=== PATIENT | female | born 1990 | race Caucasian/White ===

== ENCOUNTER 2020-05-31 20:13 | Emergency (ER) | payer BC, SELFPAY ==
--- NOTE | 2020-05-31 20:33 | HMH.EDUTC ---
[facility] Disposition Clinical Impression: Bronchitis, At increased risk of exposure to COVID-19 virus Disposition: Home, Self-Care Condition on Discharge: Good Instructions: Preventing the Spread of Coronavirus Discharge Instructions Additional Instructions: Drink plenty of fluids. Take tylenol for pain or fever. Return if you begin to have difficulty breathing. Follow up with your regular doctor. GO TO THE ER FOR ANY WORSENING SYMPTOMS Referrals: Hayde Horn APRN [Primary Care Provider] - Time of Disposition: 20:37 Medical Decision Making - Medical Records Medical records reviewed: No: I reviewed the patient's medical records. - [place] Inquiry Pt receiving controlled substance: No Vital Signs: 05/31/20 20:48 Temperature 98.1 F Temperature Source Oral Pulse Rate 92 H Respiratory Rate 16 Blood Pressure 124/83 Oxygen Delivery Method Room Air [facility] HPI - General Stated complaint: covid test Time Seen by Provider: 05/31/20 20:33 - History of Present Illness Provider Complaint: She states that she has had a cough for the past 2 days. She attributed to allergies. 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 So, to be safe she wants to get tested for covid-19. She has been vaccinated for covid-19 already. - Related Data Previous Rx's Medication Instructions Recorded fluticasone propionate 50 1 spray INTRANASAL DAILY #9.9 g 08/18/18 mcg/actuation nasal spray,suspension azithromycin 250 mg tablet See Rx Instructions PO .COMPLEX #6 08/20/18 tab dextromethorphan-guaifenesin 30 1 tab PO Q12H 14 Days #28 tab 08/20/18 mg-600 mg tablet extended [id number] hr Allergies Allergy/AdvReac Type Severity Reaction Status Date / Time No Known Allergies Allergy Verified 08/18/18 17:48 [facility] History - Hepatitis A Screen Attestation statement:: This patient has been screened for Hepatitis A risk factors. I have reviewed the patient's past medical history: Yes Other Surgeries: Yes: No Previous Surgery Amputation: No Fractures: No - Social History Smoking Status: Never smoker Alcohol Intake: never Alcohol Intake Frequency:: 0-2 drinks per day Substance Use Type: denies use Occupational Status: employed Housing: apartment Household Members: none Family Hx:: No significant family history ROS Obtained: Yes All systems reviewed & no additional complaints - Constitutional Constitutional: Reports system reviewed and no additional complaints, except as docu - Eyes Eyes: Reports system reviewed and no additional complaints, except as docu - ENT Ears, Nose, Mouth, and Throat: Reports system reviewed and no additional complaints, except as docu - Cardiovascular Cardiovascular: Reports system reviewed and no additional complaints, except as docu - Respiratory Respiratory: Reports system reviewed and no additional complaints, except as docu - Gastrointestinal Gastrointestingal: Reports: system reviewed and no additional complaints, except as docu Physical Exam - General General appearance: alert, in no apparent distress - Head Head exam: atraumatic, normocephalic, normal inspection - Eye Eye exam: Present: normal appearance, PERRL, EOMI - ENT ENT exam: Present: normal exam, normal oropharynx, mucous membranes moist, TM's normal bilaterally, normal external ear exam - Neck Neck exam: Present: normal inspection, full ROM, trachea midline. Absent: meningismus, lymphadenopathy - Chest Chest inspection: Present: normal inspection, symmetric chest wall rise. Absent: tenderness - Respiratory Respiratory exam: Present: normal lung sounds bilaterally. Absent: respiratory distress - Cardiovascular Cardiovascular exam: Present: regular rate, normal rhythm. Absent: JVD - Abdominal Exam Abdominal exam: Present: soft, normal bowel sounds. Absent: distention, tenderness, guarding - Extremities Exam Extremities exam: Present: normal inspection, full ROM, normal capilla
[2020-05-31 20:48] VITALS: BP 124/83; PULSE 92; RESP 16; TEMP 36.7; O2SAT 99
== END 2020-05-31 20:49 | disposition home or self-care (01) ==
PROVIDERS: Emergency Provider Nurse Practitioner Family; PCP Nurse Practitioner
DX: Z20.822 Contact with and (suspected) exposure to COVID-19 (principal); R05 Cough
CPT/HCPCS: U0003

== ENCOUNTER 2020-07-15 14:09 | Emergency (ER) | payer BC, SELFPAY ==
[2020-07-15 14:09] VITALS: BP 129/75; PULSE 106; RESP 20; TEMP 36.4; O2SAT 98; BMI 25.2
[2020-07-15 15:09] LABS: Microscopic, Urine URINE MICROSCOPIC (MICROSCOPIC)
--- NOTE | 2020-07-15 15:10 | HMH.EDGENADL ---
ED Disposition Clinical Impression: Threatened miscarriage Disposition: Home, Self-Care Condition on Discharge: Fair Instructions: DI for Threatened , DI for Miscarriage Additional Instructions: You have been evaluated for vaginal bleeding and . Ultrasound does not show a clear intrauterine . It does not show a definitive ectopic . However, cannot entirely exclude abnormal gestation or threatened miscarriage. Please follow-up with your primary care doctor in 24 to 48 hours for repeat beta hCG. Your hCG today is 50. Return to the emergency department for any new or worsening symptoms or any other concerns. Referrals: Hayde Horn APRN [Primary Care Provider] - Time of Disposition: 18:05 - Critical Care Critical Care Time: No Attestation: On 07/15/20, the high probability of a clinically significant, sudden or life threatening deterioration of the following system(s) required my full and direct attention, intervention and personal management. The time I documented below is in addition to time spent performing reported procedures but includes the following listed in this critical care notation. Medical Decision Making - Medical Records Medical records reviewed: Yes: I reviewed the patient's medical records. - [place] Inquiry Pt receiving controlled substance: No Vital Signs: 07/15/20 14:09 Temperature 97.5 F L Temperature Source Oral Pulse Rate [Left Radial] 106 H Respiratory Rate 20 Blood Pressure [Right Arm] 129/75 Blood Pressure Mean [Right Arm] 93 Blood Pressure Source [Right Arm] Automatic Cuff Blood Pressure Position [Right Arm] Sitting 02 Sat by Pulse Oximetry 98 Oxygen Delivery Method Room Air - Lab Data Lab Results 07/15/20 14:55: Urine Color Yellow, Urine Appearance Clear, Urine pH 7.0, Ur Specific [place] 1.015, Urine Protein Negative, Urine Glucose (UA) Negative, Urine Ketones Negative, Urine Blood 3+, Urine Nitrate Negative, Urine Bilirubin Negative, Urine Urobilinogen 0.2, Ur Leukocyte Esterase Negative, Urine RBC 10-20, Urine WBC None, Ur Squamous Epith Cells 3-5, Urine Bacteria None 07/15/20 14:55: WBC 8.8, RBC 5.02, Hgb 15.1, Hct 45.2, MCV 90.1, MCH 30.1, MCHC 33.4, RDW 12.7, Plt Count 182, MPV 8.5, Neut % (Auto) 76.0, Lymph % (Auto) 18.4, Jess[place] % (Auto) 4.9, Eos % (Auto) 0.2, Baso % (Auto) 0.5, Neut # (Auto) 6.7, Lymph # (Auto) 1.6, Jess[place] # (Auto) 0.4, Eos # (Auto) 0.0, Baso # (Auto) 0.0 07/15/20 14:55: HCG, Quant 50 H 07/15/20 15:30: Blood Type O Positive, Antibody Screen Negative Result diagrams: 07/15/20 14:55 Medical Decision Narrative: In summary this is a 30-year-old female presenting to the emergency department with vaginal bleeding. Patient clinically stable on arrival. Vital signs within normal limits. Concern for threatened miscarriage, intrauterine , ectopic . Will obtain CBC, quantitative hCG, type and screen, urinalysis Initial laboratory results reassuring. No significant anemia. Blood type is O+, Does not require RhoGam. Urinalysis shows no signs of infection. Transvaginal ultrasound shows no definitive IUP, no gestational sac. This could be early or possible miscarriage. No obvious ectopic . No free fluid. Blood flow is present to both ovaries. Patient instructed to follow-up with her PCP in 24 to 48 hours for repeat beta hCG. Given conservative management and expectations for threatened miscarriage. General Adult HPI - General Chief complaint: Vaginal Bleeding Stated complaint: 5 wks pg spotting Time Seen by Provider: 07/15/20 14:20 Mode of Arrival: Ambulatory Limitations: No Limitations Description of Symptoms (Recalled from ER Triage Doc. by RN): Pt states that she tested positive on a home test x2 at home. STarted with vaginal bleeding yesterday, denies any abodmen pain. - History of Present Illness HPI narrative: 30-year-old female presenting to the emergency d
[2020-07-15 15:19] LABS: Basophils % 0.5 % (0.1-2.0); Eosinophils % 0.2 % (0.1-12.0); Hematocrit 45.2 % (37.0-47.0); Hemoglobin 15.1 g/dL (12.2-16.2); Lymphocytes # 1.6 K/mm3 (0.7-4.5); Lymphocytes % 18.4 % (10-50); Mean Corpuscular HGB Conc 33.4 g/dL (31.8-35.4); Mean Corpuscular Hemoglobin 30.1 pg (27.0-31.2); Mean Corpuscular Volume 90.1 fl (81-99); Mean Platelet Volume 8.5 fl (7.4-10.4); Monocytes # 0.4 K/mm3 (0.1-1.0); Monocytes % 4.9 % (1.7-9.3); Neutrophils # 6.7 K/mm3 (1.8-7.8); Platelet Count 182 K/mm3 (142-424); Red Blood Count 5.02 M/mm3 (4.20-5.40); Red Cell Distribution Width 12.7 % (11.5-17.5); White Blood Count 8.8 K/mm3 (4.8-10.8)
[2020-07-15 15:25] LABS: Appearance,Urine CLEAR (Clear); Bilirubin,Urine Negative (Negative); Blood, Urine 3+ (Negative); Color,Urine YELLOW (Yellow); Glucose,Urine (UA) Negative (Negative); Ketones,Urine Negative (Negative); Leukocyte Esterase,Urine Negative (Negative); Nitrate,Urine Negative (Negative); Protein,Urine Negative (Negative); Specific Gravity, Urine 1.015 (1.005-1.030); Urobilinogen,Urine 0.2 EU/dl (0.2)
[2020-07-15 15:40] VITALS: PULSE 93; O2SAT 98
[2020-07-15 15:40] LABS: HCG,Quantitative 50 mIU/ml (0-5.42)
--- NOTE | 2020-07-15 15:49 | US_ITS ---
PROCEDURE INFORMATION: Exam: US First Trimester, Transabdominal Exam date and time: 07/15/2020 3:49 PM Age: 30 years old Clinical indication: Lmp or gestational age (in weeks): Unknown; ; Patient HX: Spotting for 2 days with early ---. Quant hcg is 50; Additional info: Vaginal bleeding TECHNIQUE: Imaging protocol: Real-time transabdominal obstetrical ultrasound of the maternal pelvis and a first trimester , less than 14 weeks 0 days, with image documentation. COMPARISON: No relevant prior studies available. FINDINGS: Gestation: No evidence of a gestational sac within the uterus. MATERNAL: Uterus: Uterus measures 8.6 x 4.2 x 4.2 cm. Endometrium measures 7 mm. Cervix: Unremarkable. Right adnexa: Right ovary measures 3.0 x 1.7 x 2.7 cm. Left adnexa: Left ovary measures 2.0 x 1.1 x 1.7 cm. Intraperitoneal space: No evidence of free fluid. Vasculature: Blood flow is demonstrated to both ovaries. IMPRESSION: 1. No evidence of a gestational sac within the uterus. Differential considerations include early , possible miscarriage. Ectopic cannot be excluded. 2. No evidence of free fluid. 3. Blood flow is demonstrated to both ovaries.
[2020-07-15 16:00] VITALS: PULSE 83; O2SAT 97
[2020-07-15 16:30] VITALS: PULSE 81; O2SAT 99
--- NOTE | 2020-07-15 16:36 | PC.NURSE ---
OFF FLOOR FOR US
[2020-07-15 18:34] VITALS: BP 129/75; PULSE 81; RESP 20; TEMP 36.4; O2SAT 98
== END 2020-07-15 18:36 | disposition home or self-care (01) ==
PROVIDERS: Emergency Provider Emergency Medicine; PCP Nurse Practitioner
DX: O20.0 Threatened abortion (principal)
CPT/HCPCS: 36415; 76801; 81001; 84702; 85025; 86850; 99283

== ENCOUNTER 2021-09-14 12:30 | Emergency (ER) | payer BC, SELFPAY ==
[2021-09-14 12:40] VITALS: BP 109/65; PULSE 101; RESP 17; TEMP 36.6; O2SAT 96; BMI 25.7
--- NOTE | 2021-09-14 12:40 | HMH.EDUTC ---
[facility] [place] Clinical Impression: Viral syndrome, Exposure to COVID-19 virus, Viral pharyngitis Disposition: Home, Self-Care Condition on Discharge: Good Instructions: DI for COVID-19 (Suspected or Confirmed ), Preventing the Spread of Coronavirus Discharge Instructions Additional Instructions: Drink plenty of fluids. Take tylenol or ibuprofen for pain or fever. Take the medications as directed. Follow up with your regular doctor. GO TO THE ER FOR ANY WORSENING SYMPTOMS Quarantine until you know the results of your covid-19 test. Notify your school or workplace of your results and follow their instructions regarding return to work/school. Prescriptions: Ondansetron [Zofran 4mg ODT] 4 mg PO Q8HP PRN #20 tab PRN Reason: Nausea Transmission Status: [facility] Benzonatate [Benzonatate 100mg cap] 100 mg PO TIDP PRN #30 cap PRN Reason: Cough Transmission Status[facility] Referrals: Provider,Referral, [Primary Care Provider] - Forms: Work/School Release Time of Disposition: 13:02 Medical Decision Making - Medical Records Medical records reviewed: No: I reviewed the patient's medical records. - [place] Inquiry Pt receiving controlled substance: No Vital Signs: 09/14/21 12:40 09/14/21 13:11 Temperature 97.9 F 97.9 F Temperature Source Oral Pulse Rate 101 H Pulse Rate [Left] 101 H Respiratory Rate 17 17 Blood Pressure 109/65 L Blood Pressure [Right Arm] 109/65 L Blood Pressure Mean [Right Arm] 79 02 Sat by Pulse Oximetry 96 - Lab Data Lab Results 09/14/21 12:40: Chlamy pneumoniae PCR Not detected, Adenovirus (PCR) Not detected, B. pertussis DNA (PCR) Not detected, Coronavirus OC43 (PCR) Not detected, Coronavirus HKU1 (PCR) Not detected, Coronavirus 229E (PCR) Not detected, SARS-CoV-2 (PCR) Detected A, Coronavirus NL63 (PCR) Not detected, Human Metapneumovir PCR Not detected, Influenza A (H1) PCR Not detected, Influ A (H1N1/09) PCR Not detected, Influenza A (H3) PCR Not detected, Influenza Type A (PCR) Not detected, Influenza Type B (PCR) Not detected, M. pneumoniae (PCR) Not detected, Parainfluenza 1 (PCR) Not detected, Parainfluenza 2 (PCR) Not detected, Parainfluenza 3 (PCR) Not detected, Parainfluenza 4 (PCR) Not detected, RSV (PCR) Not detected, Entero/Rhino (PCR) Not detected 09/14/21 12:54: Strep Scn Rapid Clinic Negative Orders (Tests/Meds): ORDERS Category Date Time Status Strep Screen Confirmation Stat Micro 09/14/21 12:54 [place] [facility] [place] - General Stated complaint: fever, chills, h/a, bodyaches Time Seen by Provider: 09/14/21 12:40 - History of Present Illness Provider Complaint: She c/o fever/chills/body ache for the past 2 day. - Related Data Previous Rx's Medication Instructions Recorded fluticasone propionate 50 1 spray INTRANASAL DAILY #9.9 g 08/18/18 mcg/actuation nasal spray,suspension azithromycin 250 mg tablet See Rx Instructions PO .COMPLEX #6 08/20/18 tab dextromethorphan-guaifenesin 30 1 tab PO Q12H 14 Days #28 tab 08/20/18 mg-600 mg tablet extended [id number] hr Benzonatate [Benzonatate 100mg 100 mg PO TIDP PRN #30 cap 09/14/21 cap] Ondansetron [Zofran 4mg ODT] 4 mg PO Q8HP PRN #20 tab 09/14/21 Allergies Allergy/AdvReac Type Severity Reaction Status Date / Time No Known Allergies Allergy Verified 09/14/21 12:44 [facility] History - Hepatitis A Screen Attestation statement:: This patient has been screened for Hepatitis A risk factors. I have reviewed the patient's past medical history: Yes Other Surgeries: Yes: No Previous Surgery Amputation: No Fractures: No - Social History Smoking Status: Never smoker Alcohol Intake: never Alcohol Intake Frequency:: 0-2 drinks per day Substance Use Type: denies use Occupational Status: employed Housing: apartment Household Members: none Family Hx:: No significant family history ROS
[2021-09-14 13:03] LABS: UTC Strep Screen (Rapid) Negative (Negative)
[2021-09-14 13:06] LABS: Adenovirus,PCR Not Detected (NotDetected); Bordetella Pertussis Not Detected (NotDetected); Chlamydophila Pneumoniae, PCR Not Detected (NotDetected); Coronavirus 229E Not Detected (NotDetected); Coronavirus NL63 Not Detected (NotDetected); Coronavirus OC43 Not Detected (NotDetected); Coronovirus HKU1,PCR Not Detected (NotDetected); Human Metapneumovirus Not Detected (NotDetected); Influenza A, PCR Not Detected (NotDetected); Influenza AH1, 2009 Not Detected (NotDetected); Influenza AH1, PCR Not Detected (NotDetected); Influenza AH3,PCR Not Detected (NotDetected); Influenza B, PCR Not Detected (NotDetected); Mycoplasma Pneumoniae, PCR Not Detected (NotDetected); Parainfluenza 1, PCR Not Detected (NotDetected); Parainfluenza 2, PCR Not Detected (NotDetected); Parainfluenza 3, PCR Not Detected (NotDetected); Parainfluenza 4, PCR Not Detected (NotDetected); Respiratory Syncytial Virus Not Detected (NotDetected); Rhinovirus/Enterovirus Not Detected (NotDetected)
[2021-09-14 13:11] VITALS: BP 109/65; PULSE 101; RESP 17; TEMP 36.6
[2021-09-14 15:01] LABS: Coronavirus 19, PCR Detected (NotDetected)
== END 2021-09-14 13:19 | disposition home or self-care (01) ==
PROVIDERS: Emergency Provider Nurse Practitioner Family
DX: U07.1 COVID-19 (principal)
CPT/HCPCS: 87581; 87632; 87798; 87880; 99212; C9803; G0463; U0003; U0005

== ENCOUNTER 2021-09-23 21:13 | Emergency (ER) | payer BC, SELFPAY ==
[2021-09-23 21:16] VITALS: BP 130/78; PULSE 101; RESP 16; TEMP 36.7; O2SAT 99; BMI 27.4
--- NOTE | 2021-09-23 21:31 | XR_ITS ---
PROCEDURE INFORMATION: Exam: XR Left Foot Exam date and time: 09/23/2021 9:35 PM Age: 31 years old Clinical indication: Pain; Foot; Left; Additional info: Injury TECHNIQUE: Imaging protocol: Radiologic exam of the Left foot. Views: 3 or more views. COMPARISON: CR XR ANKLE LT MIN 3V 09/23/2021 9:33 PM FINDINGS: Bones/joints: Normal. Soft tissues: Normal. IMPRESSION: No acute findings.
--- NOTE | 2021-09-23 21:32 | XR_ITS ---
PROCEDURE INFORMATION: Exam: XR Left Ankle Exam date and time: 09/23/2021 9:33 PM Age: 31 years old Clinical indication: Pain; Ankle; Left; Additional info: Injury TECHNIQUE: Imaging protocol: Radiologic exam of the Left ankle. Views: 3 or more views. COMPARISON: No relevant prior studies available. FINDINGS: Bones/joints: Normal. Soft tissues: Normal. IMPRESSION: No acute findings.
--- NOTE | 2021-09-23 23:21 | HMH.EDLOEX ---
ED Disposition Clinical Impression: Injury of foot Qualifiers: Encounter type: initial encounter Laterality: left Qualified Code(s): S99.922A - Unspecified injury of left foot, initial encounter Disposition: Home, Self-Care Condition on Discharge: Good Instructions: DI for Foot Pain Additional Instructions: ice and elevate and call pcp in am Referrals: Shweta Hinkle APRN [Primary Care Provider] - - Critical Care Critical Care Time: No Attestation: On 09/23/21, the high probability of a clinically significant, sudden or life threatening deterioration of the following system(s) required my full and direct attention, intervention and personal management. The time I documented below is in addition to time spent performing reported procedures but includes the following listed in this critical care notation. Medical Decision Making - Medical Records Medical records reviewed: Yes: I reviewed the patient's medical records. - [place] Inquiry Pt receiving controlled substance: No Vital Signs: 09/23/21 21:16 Temperature 98.1 F Temperature Source Oral Pulse Rate [Left Radial] 101 H Respiratory Rate 16 Blood Pressure [Right Arm] 130/78 Blood Pressure Mean [Right Arm] 95 Blood Pressure Source [Right Arm] Automatic Cuff Blood Pressure Position [Right Arm] Sitting 02 Sat by Pulse Oximetry 99 Oxygen Delivery Method Room Air Orders (Tests/Meds): ED MEDICATIONS Discontinued Medications Generic Name Dose Route Start Last Admin Trade Name Pascual PRN Reason Stop Dose Admin Acetaminophen 1,000 mg 09/23/21 22:10 09/23/21 22:13 Acetaminophen 500mg Tab PO 09/23/21 22:11 1,000 mg ONCE ONE Administration Ibuprofen 600 mg 09/23/21 22:11 09/23/21 22:13 Ibuprofen 600 Mg Tablet PO 09/23/21 22:12 600 mg ONCE ONE Administration - Radiology Data #1 Image(s): Ankle, Foot/Toes Image Reviewed: Yes I have reviewed radiologist's interpretation Preliminary Findings: No Fracture Seen Medical Decision Narrative: has acute lt foot injury with progressive pain and dec wt bearing - stable xrays - will f/u for mri Lower Extremity Injury HPI - General Chief Complaint: Extremity Injury, Lower Stated Complaint: AO08/08@1200 Left foot injury Time Seen by Provider: 09/23/21 23:00 Mode of Arrival: Wheelchair Source of Information: Patient, Medical Record Limitations: No Limitations Description of Symptoms (Recalled from ER Triage Doc. by RN): PT PAIN IN LEFT FOOT AFTER INJURY AT [employer] TODAY. PT STATES SHE ONLY HAS PAIN WITH MOVEMENT AND WHEN WEIGHT BEARING. FOOT ELEVATED. PT STATES SHE DOES NOT WANT PAIN MEDS AT THIS TIME. - History of Present Illness HPI Narrative: acute lt foot injury this afternoon - blunt trauma and has increased pain today with rom and wt bearing MD complaint: ankle injury, foot injury Onset (ago): hour(s) Injury: Left: ankle, foot Type of Injury: blunt Place: home Severity: moderate Exacerbating factors: weight bearing, movement Context: direct blow Associated symptoms: unable to bear weight Other symptoms: none - Related Data Home Medications Medication Instructions Recorded Confirmed No Known Home Medications 09/23/21 09/23/21 Allergies Allergy/AdvReac Type Severity Reaction Status Date / Time No Known Allergies Allergy Verified 09/14/21 12:44 [facility] History - Hepatitis A Screen Attestation statement:: This patient has been screened for Hepatitis A risk factors. I have reviewed the patient's past medical history: Yes Other Surgeries: Yes: No Previous Surgery Amputation: No Fractures: No - Social History Smoking Status: Never smoker Alcohol Intake: never Alcohol Intake Frequency:: 0-2 drinks per day Substance Use Type: denies use Occupational Status: employed Housing: apartment Household Members: none Family Hx:: No significant family history ROS Obtained: Yes All systems reviewed & no additional complaints - Constitutional
[2021-09-23 23:24] VITALS: BP 130/75; PULSE 89; RESP 18; TEMP 36.8; O2SAT 99
== END 2021-09-23 23:30 | disposition home or self-care (01) ==
PROVIDERS: Emergency Provider Emergency Medicine; PCP Nurse Practitioner
DX: S99.922A Unspecified injury of left foot, initial encounter (principal)
CPT/HCPCS: 73610; 73630; 99283